=== PATIENT | male | born 1990 | race Caucasian/White ===

== ENCOUNTER 2016-07-28 16:18 | Inpatient (IN) | payer OTHER ==
[~2016-07-28] VITALS: Ht 182.9 cm; Wt 104.1 kg
[~2016-07-28 16:18] MED LIST: ABILIFY5 MG PO; DEPAKOTE250 MG PO; ENBREL50 MG/1 ML SQ; LEUCOVORIN CALCI5 MG PO; MELATONIN3 MG PO; METHOTREXA25 MG/1 ML PO; MOTRIN400 MG PO; PRILOSEC20 MG PO; SERTRALINE HCL50 MG PO; STRATTERA40 MG PO; ZESTRIL,PRINIVIL5 MG PO
[2016-07-28 17:49] LABS: HEMATOCRIT 45.4 % (38.0-50.0); MCHC 34.4 G/DL (30.0-36.0); MCV 87.3 FL (86-99); MEAN PLAT.VOLUME 11.4 uM^3 (9.0-12.4); PLATELET COUNT 226 K/uL (156-360); RBC DIS.WIDTH-CV 11.6 % (11.8-14.6); RBC DIS.WIDTH-SD 37.2 % (39-53); WHITE BLOOD COUNT 13.4 K/uL (4.1-10.2)
[2016-07-28 18:07] LABS: CHLORIDE 106 mEq/L (99-109); POTASSIUM 4.1 mEq/L (3.7-5.4); SODIUM 139 mEq/L (136-147)
[2016-07-28 18:09] LABS: GLUCOSE 93 mg/dL (70-99)
[2016-07-28 18:10] LABS: ANION GAP 9 MEQ/L (2-14)
[2016-07-28 18:12] LABS: SERUM ETHYL ALCOHOL < 10 mg/dL
[2016-07-28 18:13] LABS: GFR ESTIMATE (CALCULATED) > 59 mL/min/; UREA NITROGEN (BUN) 14 mg/dL (9-23)
[2016-07-28 20:44] LABS: AMPHETAMINE NEGATIVE (500 ng/mL); BARBITURATES NEGATIVE (200 ng/mL); BENZODIAZEPINES NEGATIVE (150 ng/mL); COCAINE NEGATIVE (150 ng/mL); METHADONE NEGATIVE (200 ng/mL); METHAMPHETAMINE NEGATIVE (500 ng/mL); OPIATES (MORPHINE) NEGATIVE (100 ng/mL); OXYCODONE NEGATIVE (100 ng/mL); PHENCYCLIDINE NEGATIVE (25 ng/mL); PROPOXYPHENE NEGATIVE (300 ng/mL); THC CANNABINOIDS NEGATIVE (50 ng/mL); TRICYCLIC ANTIDEPRESSANTS NEGATIVE (300 ng/mL)
[2016-07-28 20:45] LABS: INTERNAL CONTROLS VALID? YES
[2016-07-28] MEDS ORDERED: DULOXETINE HCL30 MG PO (20:55)
[2016-07-28] MEDS ORDERED: CIPROFLOXACIN500 M1 PO (20:56)
[2016-07-28] MEDS ORDERED: METRONIDAZOLE500 MG PO (20:57)
[2016-07-28] MEDS ORDERED: PANTOPRAZOLE SO40 MG PO (20:58)
[2016-07-29 00:53] VITALS: BP 133/95
[2016-07-29 07:47] VITALS: BP 139/72
[2016-07-29 15:35] VITALS: BP 142/67
[2016-07-30 07:39] VITALS: BP 128/69
[2016-07-30 15:15] VITALS: BP 133/85
[2016-07-31 07:42] VITALS: BP 122/59
[2016-07-31] MEDS ORDERED: TRAZODONE HCL50 MG PO (09:03)
[2016-07-31] MEDS ORDERED: DULOXETINE HCL60 MG PO (09:03)
== END 2016-07-31 11:12 | disposition home or self-care (01) | DRG 885 ==
LOC: EME 16:18 → 1WEST 22:25 → EDOF 22:25 → 1WEST 22:25
PROC: 0HQEXZZ Repair Left Lower Arm Skin, External Approach (ICD-10-PCS; principal; 2016-07-28)
DX: F32.1 Major depressive disorder, single episode, moderate (principal); S61.512A Laceration without foreign body of left wrist, initial encounter; G89.29 Other chronic pain; M06.9 Rheumatoid arthritis, unspecified; K21.9 Gastro-esophageal reflux disease without esophagitis; X78.1XXA Intentional self-harm by knife, initial encounter
CPT/HCPCS: 80048; 85027; 90839; 97150 GO; 97165 GO; 99281; 99285; G0480

== ENCOUNTER 2016-08-24 09:19 | Inpatient (IN) | payer OTHER ==
[~2016-08-24] VITALS: Ht 182.9 cm; Wt 101.2 kg
[~2016-08-24 09:19] MED LIST changes: +CIPROFLOXACIN500 M1 PO; +DULOXETINE HCL30 MG PO; +DULOXETINE HCL60 MG PO; +METRONIDAZOLE500 MG PO; +PANTOPRAZOLE SO40 MG PO; +TRAZODONE HCL50 MG PO
[2016-08-24 10:04] LABS: BASOPHIL COUNT 0.1 K/uL (0-0.1); EOSINOPHIL (%) 1.1 % (0-5); EOSINOPHIL COUNT 0.1 K/uL (0-0.3); HEMATOCRIT 44.7 % (38.0-50.0); IMMATURE GRANULOCYTE (%) 0.4 % (0.0-0.7); INSTRUMENT ABS NEUTROPHIL CT 5.3 K/uL; LYMPHOCYTE COUNT 1.1 K/uL (1.0-2.8); MCH 29.7 PG (29.0-34.0); MCHC 34.5 G/DL (30.0-36.0); MCV 86.1 FL (86-99); MEAN PLAT.VOLUME 11.3 uM^3 (9.0-12.4); MONOCYTE (%) 7.3 % (3-12); MONOCYTE COUNT 0.5 K/uL (0-0.8); NEUTROPHIL (%) 75.4 % (45-76); NEUTROPHIL COUNT 5.3 K/uL (1.8-6.4); PLATELET COUNT 184 K/uL (156-360); RBC DIS.WIDTH-CV 11.7 % (11.8-14.6); RBC DIS.WIDTH-SD 37.1 % (39-53); RED BLOOD COUNT 5.19 M/uL (4.00-5.50)
[2016-08-24 10:13] LABS: CHLORIDE 106 mEq/L (99-109); POTASSIUM 3.9 mEq/L (3.7-5.4); SODIUM 137 mEq/L (136-147)
[2016-08-24 10:15] LABS: GLUCOSE 107 mg/dL (70-99)
[2016-08-24 10:17] LABS: ANION GAP 9 MEQ/L (2-14); TOTAL BILIRUBIN 0.9 mg/dL (0.0-1.0)
[2016-08-24 10:18] LABS: SERUM ETHYL ALCOHOL < 10 mg/dL
[2016-08-24 10:19] LABS: GFR ESTIMATE (CALCULATED) > 59 mL/min/
[2016-08-24 10:20] LABS: ALKALINE PHOSPHATASE 61 IU/L (3-129)
[2016-08-24 10:21] LABS: DIRECT BILIRUBIN 0.3 mg/dL (0.0-0.3); UREA NITROGEN (BUN) 12 mg/dL (9-23)
[2016-08-24 10:23] LABS: SALICYLATE < 5.0 MG/DL (15-30)
[2016-08-24 10:29] LABS: BILIRUBIN NEGATIVE; BLOOD NEGATIVE; COLOR YELLOW ((YELLOW)); GLUCOSE (STRIP) NEGATIVE; KETONES NEGATIVE; LEUKOCYTES NEGATIVE; NITRITE NEGATIVE; PROTEIN (STRIP) NEGATIVE; SPECIFIC GRAVITY 1.025 (1.000-1.030); UROBILINOGEN 0.2 MG/DL (0.2-1.0)
[2016-08-24 10:35] LABS: ADD MIUA? NO
[2016-08-24 10:43] LABS: AMPHETAMINE NEGATIVE (500 ng/mL); BARBITURATES NEGATIVE (200 ng/mL); BENZODIAZEPINES NEGATIVE (150 ng/mL); COCAINE NEGATIVE (150 ng/mL); INTERNAL CONTROLS VALID? YES; METHADONE NEGATIVE (200 ng/mL); METHAMPHETAMINE NEGATIVE (500 ng/mL); OPIATES (MORPHINE) NEGATIVE (100 ng/mL); OXYCODONE NEGATIVE (100 ng/mL); PHENCYCLIDINE NEGATIVE (25 ng/mL); PROPOXYPHENE NEGATIVE (300 ng/mL); THC CANNABINOIDS NEGATIVE (50 ng/mL); TRICYCLIC ANTIDEPRESSANTS NEGATIVE (300 ng/mL)
[2016-08-24 18:23] VITALS: BP 113/71
[2016-08-24 18:44] VITALS: BP 113/71
[2016-08-25 07:30] VITALS: BP 141/80
[2016-08-25 16:07] VITALS: BP 136/79
[2016-08-26 08:00] VITALS: BP 132/75
[2016-08-26 16:13] VITALS: BP 133/77
[2016-08-27 07:51] VITALS: BP 131/79
[2016-08-27 15:48] VITALS: BP 139/88
[2016-08-28 07:38] VITALS: BP 138/70
[2016-08-28] MEDS ORDERED: ARIPIPRAZOLE10 MG PO (12:20)
[2016-08-28] MEDS ORDERED: DULOXETINE HCL60 MG PO (12:20)
[2016-08-28] MEDS ORDERED: TRAZODONE HCL50 MG PO (12:20)
== END 2016-08-28 13:36 | disposition home or self-care (01) | DRG 885 ==
LOC: EME 09:19 → 1WEST 12:19 → EDOF 12:19 → 1WEST 18:28
PROVIDERS: Emergency Medicine
DX: F33.1 Major depressive disorder, recurrent, moderate (principal); Z78.1 Physical restraint status; R45.851 Suicidal ideations; G89.29 Other chronic pain; M19.90 Unspecified osteoarthritis, unspecified site; K21.9 Gastro-esophageal reflux disease without esophagitis
CPT/HCPCS: 80048; 80076; 81003; 85025; 90837; 93005; 97150 GO; 99281; 99285; G0480; J1630; J2060

== ENCOUNTER → 2016-10-15 | Outpatient (CLI) | payer BC ==
[~2016-10-15] VITALS: Ht 182.9 cm; Wt 100.0 kg
[~2016-10-15] MED LIST changes: +ARIPIPRAZOLE10 MG PO; +PRINIVIL10 MG PO
== END | disposition home or self-care (01) ==
LOC: AMB 10:01
DX: K29.70 Gastritis, unspecified, without bleeding (principal); K31.7 Polyp of stomach and duodenum; Z87.19 Personal history of other diseases of the digestive system; K21.9 Gastro-esophageal reflux disease without esophagitis; Z80.0 Family history of malignant neoplasm of digestive organs; M06.9 Rheumatoid arthritis, unspecified; F90.2 Attention-deficit hyperactivity disorder, combined type; F32.9 Major depressive disorder, single episode, unspecified
CPT/HCPCS: 88305; 88342 TC; J2250; J3010